=== PATIENT | female | born 1995 | race Caucasian/White ===

== ENCOUNTER → 2016-11-30 | Outpatient (CLI) | payer BC ==
[~2016-11-30] MED LIST: AMPH10CA8 PO
[2016-11-30 15:14] LABS: BASOPHILS % (AUTO) 0 % (0-10); EOSINOPHILS % (AUTO) 0 % (0-10); LYMPHOCYTES # (AUTO) 1.9 X 10^3 (1.0-4.0); LYMPHOCYTES % (AUTO) 24 % (12-44); MEAN CORPUSCULAR HEMOGLOBIN 29 PG (25-34); MEAN CORPUSCULAR HGB CONC 33 G/DL (32-36); MEAN CORPUSCULAR VOLUME 86 FL (80-99); MEAN PLATELET VOLUME 9.4 FL (7.4-10.4); MONOCYTES # (AUTO) 0.4 X 10^3 (0.0-1.0); MONOCYTES % (AUTO) 5 % (0-12); NEUTROPHILS # (AUTO) 5.4 X 10^3 (1.8-7.8); NEUTROPHILS % (AUTO) 70 % (42-75); PLATELET COUNT 291 10^3/uL (130-400); RED BLOOD COUNT 4.42 10^6/uL (4.35-5.85); RED CELL DISTRIBUTION WIDTH 12.4 % (10.0-14.5); WHITE BLOOD COUNT 7.7 10^3/uL (4.3-11.0)
[2016-11-30 15:41] LABS: ALANINE AMINOTRANSFERASE 52 U/L (0-55); ALBUMIN 3.7 GM/DL (3.2-4.5); ANION GAP 7 MMOL/L (5-14); ASPARTATE AMINO TRANSFERASE 42 U/L (5-34); BILIRUBIN,TOTAL 0.7 MG/DL (0.1-1.0); BLOOD UREA NITROGEN 7 MG/DL (7-18); BUN/CREATININE RATIO 10; CALCIUM 8.6 MG/DL (8.5-10.1); CARBON DIOXIDE 25 MMOL/L (21-32); CHLORIDE 107 MMOL/L (98-107); CHOLESTEROL 145 MG/DL (< 200); CREATININE SERUM 0.71 MG/DL (0.60-1.30); DIRECT LDL 87 MG/DL (1-129); GFR ESTIMATED > 60; GLUCOSE 79 MG/DL (70-105); POTASSIUM 3.4 MMOL/L (3.6-5.0); SODIUM 139 MMOL/L (135-145); TOTAL PROTEIN 6.5 GM/DL (6.4-8.2); TRIGLYCERIDES 97 MG/DL (<150); VLDL CHOLESTEROL 19 MG/DL (5-40)
== END ==
LOC: LAB 14:36
PROVIDERS: ATTEND Nurse Practitioner
DX: Z09 Encounter for follow-up examination after completed treatment for conditions other than malignant neoplasm (principal)
CPT/HCPCS: 36415; 80053; 80061; 82306; 82607; 82728; 83540; 84630; 85025

== ENCOUNTER 2017-10-26 16:55 | Emergency (ER) | payer BC ==
[~2017-10-26] VITALS: Ht 162.6 cm; Wt 81.6 kg
[2017-10-26] MEDS ORDERED: LISD50CA PO (17:24)
[2017-10-26] MEDS ORDERED: BIRTH CONTROL (17:24)
[2017-10-26] MEDS ORDERED: GABA-486 (17:24)
[2017-10-26] MEDS ORDERED: DIVA250T2 PO (17:24)
[2017-10-26 18:48] LABS: BASOPHILS % (AUTO) 0 % (0-10); EOSINOPHILS % (AUTO) 1 % (0-10); HEMATOCRIT 38 % (35-52); HEMOGLOBIN 13.1 G/DL (11.5-16.0); LYMPHOCYTES # (AUTO) 3.1 X 10^3 (1.0-4.0); LYMPHOCYTES % (AUTO) 37 % (12-44); MEAN CORPUSCULAR HEMOGLOBIN 30 PG (25-34); MEAN CORPUSCULAR HGB CONC 34 G/DL (32-36); MEAN CORPUSCULAR VOLUME 87 FL (80-99); MEAN PLATELET VOLUME 9.7 FL (7.4-10.4); MONOCYTES # (AUTO) 0.5 X 10^3 (0.0-1.0); MONOCYTES % (AUTO) 7 % (0-12); NEUTROPHILS # (AUTO) 4.5 X 10^3 (1.8-7.8); NEUTROPHILS % (AUTO) 55 % (42-75); PLATELET COUNT 352 10^3/uL (130-400); RED CELL DISTRIBUTION WIDTH 12.1 % (10.0-14.5); WHITE BLOOD COUNT 8.2 10^3/uL (4.3-11.0)
[2017-10-26 19:04] LABS: PROTHROMBIN TIME PATIENT 13.3 SEC (12.2-14.7)
[2017-10-26 19:09] LABS: ERYTHROCYTE SEDIMENTATION RATE 3 MM/HR (0-20)
[2017-10-26 19:10] LABS: ALANINE AMINOTRANSFERASE 20 U/L (0-55); ALBUMIN 4.5 GM/DL (3.2-4.5); ALKALINE PHOSPHATASE 34 U/L (40-136); BILIRUBIN,TOTAL 0.8 MG/DL (0.1-1.0); BUN/CREATININE RATIO 14; CALCIUM 9.1 MG/DL (8.5-10.1); CARBON DIOXIDE 20 MMOL/L (21-32); CHLORIDE 105 MMOL/L (98-107); CREATININE SERUM 0.74 MG/DL (0.60-1.30); GFR ESTIMATED > 60; GLUCOSE 76 MG/DL (70-105); POTASSIUM 3.6 MMOL/L (3.6-5.0); SODIUM 137 MMOL/L (135-145); TOTAL PROTEIN 7.5 GM/DL (6.4-8.2)
--- NOTE | 2017-10-26 20:06 | ED General ---
General Chief Complaint: General Problems/Pain Stated Complaint: BRUISES ON KNEES, NUMBNESS, PAIN Nursing Triage Note: PT CO OF PAIN AND DECREASED CIRCULATION STATES FEEL LIKE STUBBED FEET, PT HAS BRUISING BEHIND KNEE BILATERALLY, PT STATES MONDAY HAD R FIRST FINGER SWOLLEN AND VERY PAINFUL STATES HURTS UP ARM TODAY ON R SIDE. STATES MOM HAS "RSD RENNY LIKE MS" PT STATES WAS PUT ON GABAPENTIN MONDAY BY [facility]. PT DENIES INJURY Nursing Sepsis Screen: No Definite Risk Source of Information: Patient Exam Limitations: No Limitations History of Present Illness Date Seen by Provider: Oct 26, 2017 Time Seen by Provider: 23:43 Initial Comments This 22-year-old young lady presents to the emergency room with complaints of pain in her left index finger and in her toes bilaterally. She was seen at an urgent care facility on Monday, October 22 after she woke with pain and swelling in the left index finger. No explanation was found for the pain but she was started on gabapentin. Gabapentin does seem to help but makes her very drowsy. Today she has a significant pain in the toes of her feet bilaterally. She states this sensation feels like they have been stubbed. When she stepped down on the floor she had a shocking sensation go through her feet. She also has a burning sensation in the left elbow. She reports bruising behind the knees bilaterally with no explanation. She denies any prior episodes before this week. She denies fever. She denies although her LMP was 2 months ago. She has irregular cycles and takes oral control. She occasionally drinks alcohol, perhaps one day per week. She also smokes. She took gabapentin at around noon today. She takes Vyvanse and Depakote for bipolar disorder but states neither of these medications are new. She has a family history of reflex sympathetic dystrophy. Allergies and Home Medications Allergies Coded Allergies: No Known Drug Allergies (Unverified , 02/20/14) Home Medications Divalproex Sodium 250 Mg Tablet.dr, 250 MG PO BID, (Reported) Lisdexamfetamine Dimesylate 50 Mg Capsule, 50 MG PO DAILY, (Reported) Patient Home Medication List Home Medication List Reviewed: Yes Review of Systems Constitutional: no symptoms reported EENTM: no symptoms reported Respiratory: no symptoms reported Cardiovascular: no symptoms reported Gastrointestinal: no symptoms reported Genitourinary: no symptoms reported : No Musculoskeletal: see HPI Skin: see HPI Psychiatric/Neurological: See HPI Hematologic/Lymphatic: No Symptoms Reported Immunological/Allergic: no symptoms reported Past Eqmhcem-[id number]-Xhlvqc Hx Past Med/Social Hx: Reviewed and Corrections made Patient Social History Alcohol Use: Denies Use Recreational Drug Use: No Smoking Status: Current Everyday Smoker Type Used: Cigarettes Recent Foreign Travel: No Contact w/Someone Who Travel: No Recent Infectious Disease Expo: No Recent Hopitalizations: No Physical Abuse: No Sexual Abuse: No Immunizations Up To Date Date of Influenza Vaccine: Jan 08, 2014 Seasonal Allergies Seasonal Allergies: No Past Medical History Surgeries: Yes (tubes in ears) Abdominal (gastric sleeve), Ear Surgery, Tonsillectomy Respiratory: No Cardiac: No Neurological: No : No Last Menstrual Period: Aug 26, 2017 Reproductive Disorders: Yes (irregular menstrual cycles) Female Reproductive Disorders: Menstrual Problems Gastrointestinal: No Musculoskeletal: No Endocrine: No HEENT: No Cancer: No Psychosocial: Yes ADD/ADHD, Bipolar Nursing Suicide Risk Score: 0 Integumentary: No Blood Disorders: No Adverse Reaction/Blood Tranf: No Family Medical History Reviewed and Corrections made Other Conditions/Hx (reflex sympathetic dystrophy) Physical Exam Vital Signs Vital Signs - First Documented 10/26/17 10/26/17 17:00 20:12 Temp 98.1 Pulse 84 Resp 18 B/P (MAP) 137/90 (106) Pulse Ox 100 O2 Delivery Room Air Capillary Refill : Less Than 3 Seconds Height, Weight, BMI Height: 5'4.00" Weight: 180lbs. oz. [id number]; BMI Method:Stated General Appearance: No Apparent Distress, WD/WN HEENT: PERRL/EOMI, Normal ENT Inspection, Pharynx Normal Neck: Normal Inspection, Supple Respiratory: Lungs Clear, Normal Breath Sounds, No Accessory Muscle Use, No Respiratory Distress Cardiovascular: Regular Rate, Rhythm, No Edema, No Murmur, Normal Peripheral Pulses, Other (capillary refill 4-5 seconds) Gastrointestinal: Normal Bowel Sounds, Soft Extremity: Normal Inspection, No Pedal Edema, Other (capillary refill 4-5 seconds) Neurologic/Psychiatric: Alert, Oriented x3, No Motor/Sensory Deficits, Normal Mood/Affect, generation manager II-XII Norm as Tested Skin: Normal Color, Warm/Dry, Ecchymosis (behind the knees bilaterally) Progress/Results/Core Measures Suspected Sepsis Recent Fever Within 48 Hours: No Infection Criteria Present: None New/Unexplained Altered Menta: No Sepsis Screen: No Definite Risk SIRS Temperature:98.1 Pulse: 84 Respiratory Rate: 18 Laboratory Tests 10/26/17 18:40: White Blood Count 8.2 Blood Pressure 137 /90 Mean: 106 Laboratory Tests 10/26/17 18:40: Creatinine 0.74, INR Comment 1.0, Platelet Count 352, Total Bilirubin 0.8 Results/Orders Lab Results Laboratory Tests Test 10/26/17 18:40 10/26/17 19:11 Range/Units White Blood Count 8.2 4.3-11.0 10^3/uL Red Blood Count 4.40 4.35-5.85 10^6/uL Hemoglobin 13.1 11.5-16.0 G/DL Hematocrit 38 35-52 % Mean Corpuscular Volume 87 80-99 FL Mean Corpuscular Hemoglobin 30 25-34 PG Mean Corpuscular Hemoglobin Concent 34 32-36 G/DL Red Cell Distribution Width 12.1 10.0-14.5 % Platelet Count 352 130-400 10^3/uL Mean Platelet Volume 9.7 7.4-10.4 FL Neutrophils (%) (Auto) 55 42-75 % Lymphocytes (%) (Auto) 37 12-44 % Monocytes (%) (Auto) 7 0-12 % Eosinophils (%) (Auto) 1 0-10 % Basophils (%) (Auto) 0 0-10 % Neutrophils # (Auto) 4.5 1.8-7.8 X 10^3 Lymphocytes # (Auto) 3.1 1.0-4.0 X 10^3 Monocytes # (Auto) 0.5 0.0-1.0 X 10^3 Eosinophils # (Auto) 0.0 0.0-0.3 10^3/uL Basophils # (Auto) 0.0 0.0-0.1 10^3/uL Erythrocyte Sedimentation Rate 3 0-20 MM/HR Prothrombin Time 13.3 12.2-14.7 SEC INR Comment 1.0 0.8-1.4 Activated Partial Thromboplast Time 27 24-35 SEC Sodium Level 137 135-145 MMOL/L Potassium Level 3.6 3.6-5.0 MMOL/L Chloride Level 105 98-107 MMOL/L Carbon Dioxide Level 20 L 21-32 MMOL/L Anion Gap 12 5-14 MMOL/L Blood Urea Nitrogen 10 7-18 MG/DL Creatinine 0.74 0.60-1.30 MG/DL Estimat Glomerular Filtration Rate > 60 BUN/Creatinine Ratio 14 Glucose Level 76 70-105 MG/DL Calcium Level 9.1 8.5-10.1 MG/DL Corrected Calcium 8.7 8.5-10.1 MG/DL Total Bilirubin 0.8 0.1-1.0 MG/DL Aspartate Amino Transf (AST/SGOT) 16 5-34 U/L Alanine Aminotransferase (ALT/SGPT) 20 0-55 U/L Alkaline Phosphatase 34 L 40-136 U/L C-Reactive Protein High Sensitivity 0.09 0.00-0.50 MG/DL Total Protein 7.5 6.4-8.2 GM/DL Albumin 4.5 3.2-4.5 GM/DL TSH [place] Testing 2.14 0.35-4.94 UIU/ML Valproic Acid (Depakene) Level 26.0 L 50.0-100.0 UG/ML Rheumatoid Factor NEGATIVE NEGATIVE Serum Test, Qualitative NEGATIVE NEGATIVE My Orders Orders - HERB STEELE MD Cbc With Automated Diff (10/26/17 18:10) Comprehensive Metabolic Panel (10/26/17 18:10) Protime With Inr (10/26/17 18:10) Partial Thromboplastin Time (10/26/17 18:10) Erythrocyte Sedimentation Rate (10/26/17 18:10) Saline Lock/Iv-Start (10/26/17 18:10) Valproic Acid (10/26/17 18:35) Hs C Reactive Protein (10/26/17 18:35) Rheumatoid Factor (10/26/17 18:35) Hcg,Qualitative Serum (10/26/17 18:52) Thyroid Analyzer (10/26/17 18:52) Vital Signs/I&O 10/26/17 10/26/17 17:00 20:12 Temp 98.1 98.0 Pulse 84 80 Resp 18 16 B/P (MAP) 137/90 (106) 132/64 (106) Pulse Ox 100 99 O2 Delivery Room Air Capillary Refill : Less Than 3 Seconds Blood Pressure Mean: 106 Progress Note : Progress Note Workup was unremarkable. Patient was advised to follow-up closely in the clinic for further evaluation. Imaging of the head or referrals to a specialist may be recommended at that point. She was advised to keep her hands and feet warm as Raynaud's phenomenon may be causing her symptoms. She was advised she may continue Neurontin is helpful but to use with caution due to the drowsy side effect. Departure Impression Primary Impression: Left hand pain Additional Impressions: Bilateral foot pain Bruising Disposition: HOME, SELF-CARE Condition: Stable Departure-Patient Inst. Decision time for Depature: 20:04 Referrals: NO,LOCAL PHYSICIAN (PCP/Family) Primary Care Physician Patient Instructions: Raynaud Disease Add. Discharge Instructions: You may use the gabapentin as directed. Use with caution if it causes drowsiness. Do not use prior to driving or operating machinery. Follow-up with her primary care provider such as the [facility] in [place] as soon as possible. Further workup may be appropriate in the outpatient setting. Return to emergency room if symptoms are worsening significantly. In the meantime, keep your hands and feet warm as much as possible. Symptoms may be related to Raynaud's phenomenon which can be helped by keeping the extremities warm. All discharge instructions reviewed with patient and/or family. Voiced understanding. Copy Copies To 1: DAVID RIVERO MD, JOSHUA T MD Oct 26, 2017 20:06
[2017-10-26 20:12] VITALS: BP 132/64
== END 2017-10-26 20:12 | disposition home or self-care (01) ==
LOC: EDUNIT# 16:55 → ER 16:56
DX: S60.222A Contusion of left hand, initial encounter (principal); S90.32XA Contusion of left foot, initial encounter; S90.31XA Contusion of right foot, initial encounter; F90.9 Attention-deficit hyperactivity disorder, unspecified type; F31.9 Bipolar disorder, unspecified; F17.210 Nicotine dependence, cigarettes, uncomplicated; Z98.84 Bariatric surgery status; Z90.89 Acquired absence of other organs; Z87.448 Personal history of other diseases of urinary system; X58.XXXA Exposure to other specified factors, initial encounter
CPT/HCPCS: 36415; 80053; 80164; 84443; 84703; 85025; 85610; 85652; 85730; 86141; 86430

== ENCOUNTER → 2019-05-16 | Outpatient (CLI) | payer MEDICAID ==
[~2019-05-16] MED LIST changes: +BIRTH CONTROL; +DIVA250T2 PO; +GABA-486; +LISD50CA PO
== END ==
LOC: LAB 11:24
PROVIDERS: ATTEND Obstetrics & Gynecology
DX: O20.0 Threatened abortion (principal); Z3A.01 Less than 8 weeks gestation of pregnancy
CPT/HCPCS: 36415; 84702